=== PATIENT | female | born 1985 | race Caucasian/White ===

== ENCOUNTER → 2023-08-23 09:21 | Outpatient (REF) | payer OTHER, SELFPAY | LOC: PNTC 09:21 | PROVIDERS: ATTENDING PHYSICIAN Obstetrics & Gynecology | DX: O09.529 Supervision of elderly multigravida, unspecified trimester (principal) | CPT/HCPCS: 76811 ==

== ENCOUNTER → 2023-10-04 09:18 | Outpatient (REF) | payer OTHER, SELFPAY | LOC: PNTC 09:18 | PROVIDERS: ATTENDING PHYSICIAN Obstetrics & Gynecology | DX: O09.529 Supervision of elderly multigravida, unspecified trimester (principal) | CPT/HCPCS: 76816 ==

== ENCOUNTER → 2023-11-15 09:16 | Outpatient (REF) | payer OTHER, SELFPAY | LOC: PNTC 09:16 | PROVIDERS: ATTENDING PHYSICIAN Obstetrics & Gynecology | DX: O09.529 Supervision of elderly multigravida, unspecified trimester (principal) | CPT/HCPCS: 76816 ==

== ENCOUNTER 2024-01-06 05:41 | Inpatient (IN) | payer OTHER, SELFPAY ==
[2024-01-06 05:58] VITALS: BP 105/72; BMI 25.5
[2024-01-06 06:25] LABS: Hematocrit 36.9 % (37.0-47.0); Hemoglobin 13.2 g/dL (12.0-16.0); Mean Corp Hgb Conc. 35.8 g/dL (33.0-37.0); Mean Corpuscular Hgb 31.2 pg (27.0-31.0); Mean Corpuscular Volume 87.2 fL (81.0-99.0); Mean Platelet Volume 10.1 fL (7.4-10.4); Platelet Count 153 10^3/uL (130-400); Red Blood Cell Count 4.23 10^6/uL (4.20-5.40); Red Cell Dist. Width 13.2 % (11.5-14.5); White Blood Cell Count 10.2 10^3/uL (4.8-10.8)
[2024-01-06] MEDS: ANCEF 10 IV (06:47)
[2024-01-06] MEDS: BICITRA 30 ML PO (06:48)
[2024-01-06] MEDS: TYLENOL 1000 MG PO (06:48)
[2024-01-06] MEDS: TORADOL 15 MG IV ×2 (14:14→21:09)
[2024-01-06] MEDS: ZOFRAN 4 MG IV (14:19)
[2024-01-07] MEDS: TORADOL 15 MG IV ×2 (02:09→08:57)
[2024-01-07 05:50] LABS: Hematocrit 32.4 % (37.0-47.0); Hemoglobin 11.1 g/dL (12.0-16.0); Mean Corp Hgb Conc. 34.3 g/dL (33.0-37.0); Mean Corpuscular Hgb 31.1 pg (27.0-31.0); Mean Corpuscular Volume 90.8 fL (81.0-99.0); Mean Platelet Volume 10.5 fL (7.4-10.4); Platelet Count 135 10^3/uL (130-400); Red Blood Cell Count 3.57 10^6/uL (4.20-5.40); Red Cell Dist. Width 13.4 % (11.5-14.5); White Blood Cell Count 13.4 10^3/uL (4.8-10.8)
--- NOTE | 2024-01-07 08:00 | W.PN.ANS.POP ---
Anesthesia Post Operative
- Anesthesia Post Op Note
Vital Signs Stable-See Nursing Note: Yes
Airway Patent: Yes
Adequate Pain Control: Yes
Change in Mental Status: No
Current Postoperative Nausea & Vomiting: No
Anesthesia Complications: No
General Anesthetic Recall: No
Unplanned Admission: No
Post Op Hydration Adequate: Yes
[2024-01-07] MEDS: SENOKOT-S 1 TABLET PO (08:57)
[2024-01-07] MEDS: PRENATAL PLUS 1 TABLET PO (08:57)
[2024-01-07] MEDS: MOTRIN 600 MG PO ×2 (14:52→21:23)
[2024-01-07] MEDS: TYLENOL 650 MG PO (14:53)
[2024-01-07 16:30] LABS: Syphilis/T. pallidum Ab Reflex Negative (Negative)
[2024-01-07] MEDS: PERCOCET 5/325 1 TABLET PO (21:23)
[2024-01-08] MEDS: MOTRIN 600 MG PO (04:54)
[2024-01-08] MEDS: PERCOCET 5/325 1 TABLET PO (04:54)
[2024-01-08] MEDS: PRENATAL PLUS 1 TABLET PO (08:27)
--- NOTE | 2024-01-08 09:17 | W.DS.TRANS ---
DC Summary - [employer]
-
Discharge Instructions:
Discharge Diagnosis/Procedures rcs
Instructions:
Stand-Alone Forms: LDRP Delivery
Changes to Home Medications: No
Discharge Medications:
DC Medications w/original date entered in [facility]
vitamin-ferrous fumarate 28 mg iron-folic acid 800 mcg tablet 1 ea PO DAILY Supplement 07/17/20
ibuprofen 600 mg tablet 600 mg PO Q6HPRN PRN cramps #90 tabs 01/08/24
oxycodone-acetaminophen 5 mg-325 mg tablet 1 tab PO Q4HPRN PRN moderate pain #10 tabs 01/08/24
Home Medication Changes
Pending Results: No
Total time spent discharging patient (in min): 20
== END 2024-01-08 11:32 | disposition home or self-care (01) | DRG 788 ==
LOC: LDRP 05:41
PROVIDERS: ADMITTING PHYSICIAN Obstetrics & Gynecology
PROC: 0DNW0ZZ Release Peritoneum, Open Approach (ICD-10-PCS; 2024-01-06)
PROC: 10D00Z1 Extraction of Products of Conception, Low, Open Approach (ICD-10-PCS; 2024-01-06)
DX: O34.211 Maternal care for low transverse scar from previous cesarean delivery (principal); O99.62 Diseases of the digestive system complicating childbirth; O69.82X0 Labor and delivery complicated by other cord entanglement, without compression, not applicable or unspecified; N85.8 Other specified noninflammatory disorders of uterus; K66.0 Peritoneal adhesions (postprocedural) (postinfection); Z3A.39 39 weeks gestation of pregnancy; Z37.0 Single live birth
CPT/HCPCS: 36415; 85027; 86780; 86850; 86900; 86901